=== PATIENT | male | born 1970 | race Caucasian/White ===

== ENCOUNTER 2019-05-17 16:43 | Emergency (ER) | payer MEDICAID, OTHER ==
[~2019-05-17] VITALS: Ht 195.6 cm; Wt 120.7 kg
[2019-05-17 16:48] VITALS: BP 119/87
== END 2019-05-17 17:25 | disposition home or self-care (01) ==
LOC: ED 17:16
DX: G89.29 Other chronic pain (principal); M25.551 Pain in right hip; E11.9 Type 2 diabetes mellitus without complications; I10 Essential (primary) hypertension; Z72.9 Problem related to lifestyle, unspecified
CPT/HCPCS: 99283